=== PATIENT | male | born 1980 | race Caucasian/White ===

== ENCOUNTER 2021-01-05 08:00 | Outpatient (RCR) | payer BC, SELFPAY ==
[2018-10-29 17:02] VITALS: BMI 30.2
== END 2021-03-20 23:59 ==
LOC: IMMUN 08:00
PROVIDERS: Visit Provider Family Medicine
DX: Z23 Encounter for immunization (principal)
CPT/HCPCS: 0001A; 0002A; 91300

== ENCOUNTER → 2024-01-06 | Outpatient (CLI) | payer BC, SELFPAY ==
--- NOTE | 2024-01-06 09:01 | AAVD_ITS ---
Reason For Study: Aortic dilatation, ectatic thoracic aorta per CTA Aorta Measurements Aorta Doppler Measurements Proximal aorta measures1.89 x 1.83cm. in cross- Peak systolic flow velocities within the proximal sectional axis. aorta measure 114 cm/sec. Proximal aorta measures1.83cm. in longitudinal Peak systolic flow velocities within the mid aorta axis. measure 115.8 cm/sec. Mid aorta measures1.71 x 1.75cm. in cross- Peak systolic flow velocities within the distal sectional axis. aorta measure 83.2 cm/sec. Mid aorta measures1.66cm. in longitudinal axis. Distal aorta measures1.62 x 1.60cm. in cross- sectional axis. Distal aorta measures1.59cm. in longitudinal axis. Left Iliac Artery Left iliac artery measures 1.06 x 1.06 cm. in the cross-sectional axis. Left iliac artery measures 1.09 cm. in the longitudinal axis. Peak systolic velocity in the left iliac artery measures 88.6 cm/sec. Right Iliac Artery Right iliac artery measures 1.24 x 1.24 cm. in the cross-sectional axis. Right iliac artery measures 1.25 cm. in the longitudinal axis. Peak systolic velocity in the right iliac artery measures 106.7 cm/sec. Procedure Aorta IVC Iliac vasculature or bypass grafts 49666. Exam performed in department. VL/Abd Aortic/IVC Duplex scan Interpretation Summary Normal proximal abdominal aortic diameter dimensions of 1.89 x [address] with minimally increased peak systolic flow at 114 cm/s. Undetermined significance. No evidence for abdominal aortic aneurysm Left common iliac artery normal at 1.06 x 1.06 cm in diameter Right common iliac artery normal at 1.24 x 1.24 cm in diameter Ordering Physician: David Kelly Referring Physician: Fide Zhu Performed By: Katya Williamson RVT
--- NOTE | 2024-01-06 09:01 | ECHOD_ITS ---
Reason For Study: DILATED ASCENDING AORTA Procedure This was a 2D Doppler, Color Flow transthoracic echocardiogram. Myocardial strain analysis was performed in this exam to aid in the assessment of cardiac function. Exam performed in department. Left Ventricle Normal LV size. Left ventricular systolic function is normal. The left ventricular ejection fraction is 60 %. Stage 1 diastolic dysfunction. No regional wall motion abnormalities noted. Right Ventricle Normal RV size. Normal systolic function. Atria Normal left atrium. Normal right atrium. Mitral Valve Normal mitral valve. Aortic Valve Bicuspid aortic valve. Mild (1+) aortic valve insufficiency. Pulmonic Valve Normal pulmonic valve. Great Vessels Normal aortic root. The ascending aorta is moderately dilated. 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 Pericardium/Pleural No pericardial effusion. MMode/2D Measurements & Calculations LVIDd: 5.1 cm IVSd: 1.1 cm LVOT diam: 2.4 cm LVIDs: 4.2 cm LVPWd: 1.0 cm LVOT area: 4.7 cm2 RVDd: 3.2 cm FS: 18.6 % Ao root diam: 3.6 cm LAV(MOD-bp): 51.3 ml LVAd ap4: 29.1 cm2 LAV(MOD-bp) Indexed: 22.4 ml/m2 LVLd ap4: 7.4 cm LAV(MOD-sp2): 51.3 ml EDV(MOD-sp4): 93.7 ml LAV(MOD-sp4): 44.9 ml EDV(sp4-el): 96.6 ml LVAs ap4: 18.5 cm2 LVLs ap4: 6.8 cm ESV(MOD-sp4): 45.3 ml ESV(sp4-el): 42.8 ml EF(MOD-sp4): 51.7 % EF(sp4-el): 55.7 % SV(MOD-sp4): 48.4 ml SV(MOD-sp2): 62.0 ml LVAd ap2: 32.2 cm2 LVLd ap2: 8.5 cm EDV(MOD-sp2): 103.8 ml EDV(sp2-el): 102.8 ml LVAs ap2: 18.4 cm2 LVLs ap2: 7.1 cm ESV(MOD-sp2): 41.8 ml ESV(sp2-el): 40.9 ml EF(MOD-sp2): 59.7 % SV(sp4-el): 53.8 ml LA A4 area: 18.2 cm2 LA dimension(2D): 3.5 cm TAPSE: 1.8 cm RA A4 area: 14.8 cm2 Time Measurements MV dec time: 0.20 sec Doppler Measurements & Calculations MV E max carlton: 48.1 cm/sec Lat Peak E' Carlton: 9.3 cm/sec Med Peak E' Carlton: 10.9 cm/sec MV A max carlton: 53.8 cm/sec E/E' lat: 5.2 E/E' med: 4.4 MV E/A: 0.89 MV dec slope: 236.9 cm/sec2 Ao V2 max: 193.2 cm/sec AI max carlton: 491.1 cm/sec Ao max P.0 mmHg AI max P.6 mmHg Ao V2 mean: 147.6 cm/sec AI dec slope: 306.4 cm/sec2 Ao mean P.5 mmHg AI P1/2t: 469.6 msec Ao V2 VTI: 44.0 cm AV (velocity ratio): 0.39 HARESH(I,D): 1.8 cm2 HARESH(V,D): 1.9 cm2 LV V1 max: 80.2 cm/sec SV(LVOT): 80.6 ml PA V2 max: 85.2 cm/sec LV V1 max P.6 mmHg PA max PG (full): 1.2 mmHg LV V1 mean P.4 mmHg LV V1 mean: 55.6 cm/sec LV V1 VTI: 17.3 cm ECHO/Echo Complete Interpretation Summary Normal LV size. Left ventricular systolic function is normal. The left ventricular ejection fraction is 60 %. Stage 1 diastolic dysfunction. Bicuspid aortic valve. Mild (1+) aortic valve insufficiency. 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 The global longitudinal strain is normal. The global longitudinal strain = -18. 6 % (normal). Ordering Physician: David Kelly Referring Physician: David Kelly MD Performed By: Bonny Alexis RDCS
== END | disposition home or self-care (01) ==
PROVIDERS: PCP Internal Medicine; Referring Provider Internal Medicine Cardiovascular Disease; Visit Provider Internal Medicine Cardiovascular Disease
DX: I77.810 Thoracic aortic ectasia (principal); R93.1 Abnormal findings on diagnostic imaging of heart and coronary circulation
CPT/HCPCS: 93306; 93978

== ENCOUNTER → 2025-07-06 | Outpatient (CLI) | payer BC, SELFPAY ==
--- NOTE | 2025-07-06 | TISS_PTH ---
PATIENT: JIM LOZA LOC: [facility]#:[id number] AGE/SX: 45/M ROOM: RE07/06/[address]: Dr. Romulo Rivera MD : [id number] BED: DIS: 07/06/2025 SPEC #: [id number] RECD: 07/07/25 07:58 STATUS: DEONTE SIN #: [id number] AMANDA: 07/06/25 00:[address]: Romulo Rivera DEPT: SURGICAL PATHOLOGY RECD BY: Danni Lucero ENTERED: 07/07/25 08:04 SP TYPE: Tissue Bx ARIC DR: ELENA Madden Tissues: A - TISSUE SURGICALLY REMOVED Procedures: Surgery Specimen Level IV HEADER OPERATION: Permanent pathology PRE-OP DIAGNOSIS: Left nasal mass TISSUE SUBMITTED: A- Left nasal mass MICROSCOPIC DIAGNOSIS A. Skin, left nose, shave excision: * Angiofibroma, benign. MICROSCOPIC DESCRIPTION Slides are reviewed. GROSS DESCRIPTION A. Received in formalin labeled with the patient's name and date of . Designated as nose is a 0.5 x 0.4 x 0.3 cm alcocer-white, focally erythematous and granular, firm nodule. The resection margin is inked green. The specimen is bisected and entirely submitted in 1 cassette. RI 07/07/2025 CPT:83559
== END | disposition home or self-care (01) ==
PROVIDERS: PCP Nurse Practitioner Family; Referring Provider Otolaryngology; Visit Provider Otolaryngology
DX: D23.39 Other benign neoplasm of skin of other parts of face (principal)
CPT/HCPCS: 88305